=== PATIENT | male | born 1980 | race Two or more races ===

== ENCOUNTER 2023-11-22 18:11 | Emergency (ER) | payer MEDICAID, OTHER ==
[~2023-11-22] VITALS: Ht 167.6 cm; Wt 72.6 kg
[2023-11-22 18:35] VITALS: BP 126/81; TEMP 98.7; O2SAT 97
[2023-11-22] MEDS ORDERED: LIDOCAINE 1%-EPI 1:100,000 20 ML VIAL ONE (20:07)
[2023-11-22] MEDS ORDERED: SULFAMETH/TRIMETH 800/160 MG 1 UDTAB TABLET ONE (20:08)
[2023-11-22] MEDS: LIDOCAINE 1%-EPI 1:100,000 20 ML VIAL TP ONE (20:15)
[2023-11-22] MEDS: SULFAMETH/TRIMETH 800/160 MG 1 UDTAB TABLET PO ONE (20:15)
[2023-11-22] MEDS ORDERED: IBUP-1957 PO (21:26)
[2023-11-22] MEDS ORDERED: SULF1TAB48 PO (21:26)
[2023-11-22] MEDS ORDERED: IBUPROFEN 400 MG TABLET PO ONE (21:30)
[2023-11-22] MEDS ORDERED: ACETAMINOPHEN ES 500 MG TABLET PO ONE (21:30)
== END 2023-11-22 22:06 | disposition home or self-care (01) ==
LOC: ER 18:19
DX: L02.411 Cutaneous abscess of right axilla (principal); Z59.00 Homelessness unspecified
CPT/HCPCS: 99283; 10060; A6403; A6407; J3490